=== PATIENT | male | born 1990 | race Caucasian/White ===

== ENCOUNTER 2016-11-09 13:54 | Emergency (ER) | payer OTHER ==
[~2016-11-09] VITALS: Ht 167.6 cm; Wt 54.5 kg
[2016-11-09 13:58] VITALS: Ht 167.6 cm; Wt 54.5 kg
[2016-11-09] MEDS ORDERED: FLUORESCEIN STRIP RIGHT EYE ONE (15:00)
[2016-11-09] MEDS ORDERED: TETRACAINE 0.5% 4 ML OPH BOTH EYES ONE (15:00)
[2016-11-09] MEDS ORDERED: ERYT1OIN6 RIGHT EYE (15:38)
[2016-11-09] MEDS ORDERED: IBUP-1542 PO (15:46)
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
--- NOTE | 2016-11-09 16:40 | ERD ---
ER Documentation Chief Complaint Date/Time DATE: 11/09/16 TIME: 16:30 Chief Complaint right eye pain and swelling from corneal abrasion on 4 days ago HPI Patient is a 26-year-old male who presents with sudden onset, constant, progressive pain to his right eye for 5 days. He states that he had a sudden foreign body sensation in his eye was irritated. Over time it has become more swollen and painful. He saw a he went to an emergency department 4 days ago, and was prescribed gentamicin eyedrops. He states that the pain is getting worse despite the use of this medication. He denies significant visual impairment. He denies eye discharge. He denies pain with eye movement. He denies identified foreign body or trauma. ROS All systems reviewed and are negative except as per history of present illness. Medications Home Meds Discontinued Scripts Ibuprofen* (Motrin*) 600 Mg Tab, 600 MG PO Q6, #30 TAB Prov:DEBBI HOGAN PA-C 11/09/16 Erythromycin (Erythromycin Opth) 3.5 Gm Oint..gm., 1 APPLIC RIGHT EYE QID, #1 Prov:DEBBI HOGAN PA-C 11/09/16 Allergies Allergies: Coded Allergies: No Known Allergy (Unverified , 11/09/16) PMhx/Soc Past medical history: None Past surgical history: None Social history: Denies tobacco or alcohol Medical and Surgical Hx: pt denies Medical Hx, pt denies Surgical Hx Hx Alcohol Use: No Hx Substance Use: No Hx Tobacco Use: No Smoking Status: Never smoker FmHx Family History: No coronary disease, No diabetes Physical Exam Vitals Vital Signs Date Time Temp Pulse Resp B/P Pulse Ox O2 Delivery O2 Flow Rate FiO2 11/09/16 13:58 98.3 78 16 128/71 96 Physical Exam Const: Alert, no acute distress Head: Atraumatic Eyes: Right periorbital edema, mild. Moderate conjunctival injection. Dendritic lesion with fluid are seen staining around 9 to 12:00 on right cornea. Anterior chamber deep and quiet. Pupil round and reactive. Visual acuity 20/40 right eye, 20/30 left eye. Lv 22. Extraocular movements intact.No pain with eye movement. ENT: Normal External Ears, Nose and Mouth. Resp: Clear to auscultation bilaterally Cardio: Regular rate and rhythm, no murmurs Abd: Soft, non tender, non distended. Normal bowel sounds Skin: No petechiae or rashes Back: No midline or flank tenderness Ext: No cyanosis, or edema Neur: Awake and alert Psych: Normal Mood and Affect Results 24 hrs Current Medications Medications (Trade) Dose Ordered Sig/Paula Route PRN Reason Start Time Stop Time Status Last Admin Dose Admin Tetracaine HCl (Tetracaine 0.5% Steri-Unit Deyanira) 1 drop ONCE ONCE BOTH EYES 11/09/16 15:00 11/09/16 15:01 DC Fluorescein Sodium (Bmwdp-B-Rauuo) 1 strip ONCE ONCE RIGHT EYE 11/09/16 15:00 11/09/16 15:01 DC Procedures/MDM MDM: Patient is a 26-year-old male who presents with pain to right eye for 4-5 days with foreign body sensation. There is no foreign body or trauma identified. The patient was treated with gentamicin for corneal abrasion, but at this time I have concerned that there may be a dendritic lesion on the cornea. There is no vesicular rash on the face or scalp. Patient has no systemic symptoms. Vision is well preserved. Vision with pinhole was not able to be performed due to lack of pinhole. Exam was somewhat limited by lack of a working slit lamp. I spoke with Dr. Rolle, claims administrator authorized to see the patient, and she stated that she would see him in the morning at 8:30 AM tomorrow. She recommended changing the patient to Cipro drops but deferring antiviral medication. Patient will be discharged with strict return precautions and advised of the importance of keeping his appointment tomorrow. Departure Diagnosis: Primary Impression: Dendritic keratitis Condition: Stable Referrals: [facility] YOU HAVE RECEIVED A MEDICAL SCREENING EXAM AND THE RESULTS INDICATE THAT YOU DO NOT HAVE A CONDITION THAT REQUIRES URGENT TREATMENT IN THE EMERGENCY DEPARTMENT. FURTHER EVALUATION AND TREATMENT OF YOUR CONDITION CAN WAIT UNTIL YOU ARE SEEN IN YOUR DOCTORS OFFICE WITHIN THE NEXT 1-2 DAYS. IT IS YOUR RESPONSIBILITY TO MAKE AN APPOINTMENT FOR FOLOW-UP CARE. IF YOU HAVE A PRIMARY DOCTOR --you should call your primary doctor and schedule an appointment IF YOU DO NOT HAVE A PRIMARY DOCTOR YOU CAN CALL OUR PHYSICIAN REFERRAL HOTLINE AT IF YOU CAN NOT AFFORD TO SEE A PHYSICIAN YOU CAN CHOSE FROM THE FOLLOWING [facility] CLINICS [facility] [address] [facility]HEBA PORTILLO [facility] [address] [facility] [address] [facility] [address] [facility] [address] [facility]. [facility] [address] [facility] [address] [facility] [phone] [facility]. [facility] [address] [facility] [address] [facility] YOU HAVE RECEIVED A MEDICAL SCREENING EXAM AND THE RESULTS INDICATE THAT YOU DO NOT HAVE A CONDITION THAT REQUIRES URGENT TREATMENT IN THE EMERGENCY DEPARTMENT. FURTHER EVALUATION AND TREATMENT OF YOUR CONDITION CAN WAIT UNTIL YOU ARE SEEN IN YOUR DOCTORS OFFICE WITHIN THE NEXT 1-2 DAYS. IT IS YOUR RESPONSIBILITY TO MAKE AN APPOINTMENT FOR FOLOW-UP CARE. IF YOU HAVE A PRIMARY DOCTOR --you should call your primary doctor and schedule and appointment IF YOU DO NOT HAVE A PRIMARY DOCTOR YOU CAN CALL OUR PHYSICIAN REFERRAL HOTLINE AT . IF YOU CAN NOT AFFORD TO SEE A PHYSICIAN YOU CAN CHOSE FROM THE FOLLOWING [facility] INSTITUTIONS: [facility] [address] [place], [place] [id number] [place] [address] [address] [place], [place] [id number] [place] [address] + [facility] [address] Hours: Mon - Fri 9:00 AM - 5:00 PM 9:00 AM - 5:00 PM CAROL ANN OGDEN MD Nov 09, 2016 16:40
[2016-11-09] MEDS ORDERED: OFLO5DRO46 RIGHT EYE (16:56)
== END 2016-11-09 17:05 | disposition home or self-care (01) ==
LOC: FTE 13:54
DX: B00.52 Herpesviral keratitis (principal)
CPT/HCPCS: Z7502; Z7610; 99283